=== PATIENT | male | born 1955 | race Caucasian/White ===

== ENCOUNTER → 2016-10-30 | Outpatient (CLI) | payer BC ==
[2016-10-30 08:17] LABS: Basophils % (A) 1 %; CH 31.4; CHCM 34.1; Eosinophils # (A) 0.2 k/uL (0-0.7); Eosinophils % (A) 2 %; HCT 44.9 % (39.0-53.0); HDW 2.41; HGB 15.1 gm/dL (13.0-17.5); Luc # (Auto) 0.17; Luc % (Auto) 2; Lymphocytes # (A) 1.4 k/uL (1.0-4.8); Lymphocytes % (A) 21 %; MCH 31.2 pg (25.0-35.0); MCHC 33.7 g/dL (31.0-37.0); MCV 92.6 fL (80.0-100.0); Mean Platelet Volume 7.7; Monocytes # (A) 0.5 k/uL (0-1.0); Monocytes % (A) 7 %; Neutrophils # (A) 4.8 k/uL (1.3-7.7); Neutrophils % (A) 68 %; RBC 4.85 m/uL (4.30-5.90); RDW 12.6 % (11.5-15.5); WBC (Perox) 7.33
[2016-10-30 11:53] LABS: ALT 58 U/L (21-72); AST 34 U/L (17-59); Alkaline Phosphatase 78 U/L (38-126); Anion Gap 7 mmol/L; Blood Urea Nitrogen 18 mg/dL (9-20); Calcium 9.5 mg/dL (8.4-10.2); Carbon Dioxide 30 mmol/L (22-30); Chloride 102 mmol/L (98-107); Cholesterol 231 mg/dL (<200); Glucose 129 mg/dL (74-99); HDL Cholesterol 48 mg/dL (40-60); Non-African American GFR(MDRD) >60 (>60 ml/min/1.73 sqM); Potassium 4.6 mmol/L (3.5-5.1); Sodium 139 mmol/L (137-145); Total Bilirubin 0.5 mg/dL (0.2-1.3); Total Protein 7.1 g/dL (6.3-8.2); Triglycerides 198 mg/dL (<150)
[2016-10-30 13:12] LABS: Hemoglobin A1C 6.4 % (4.2-6.1)
== END ==
LOC: LABWHC1 07:34
PROVIDERS: ATTEND Internal Medicine Pulmonary Disease
DX: E78.5 Hyperlipidemia, unspecified (principal); I10 Essential (primary) hypertension
CPT/HCPCS: 84439; 80061; 80053; 83036; 84443; 85025; 36415; G0103

== ENCOUNTER 2016-12-08 23:40 | Emergency (ER) | payer BC ==
[2016-12-08 23:46] VITALS: BP 132/88; PULSE 98; RESP 18; TEMP 97.1
--- NOTE | 2016-12-09 00:10 | ED ---
Upper Extremity HPI - General Chief Complaint: Extremity Injury, Upper Stated Complaint: fish hook in finger Time Seen by Provider: 12/08/16 23:57 Source: patient Mode of arrival: ambulatory Limitations: no limitations - History of Present Illness Initial Comments: This patient is a 61-year-old man who presents because he has a fishhook embedded in his left second digit. Patient states he was fishing tonight when became caught his finger. Patient denies significant pain. There is no weakness or numbness of the finger. Patient states he believes his tetanus immunizations up-to-date MD Complaint: Injury to:: left, finger -: hour(s) Other Extremity Injury: Fingers: Left Other Injuries: none Handedness: right Place: outdoors Improves With: none Worsens With: none Associated Symptoms: denies other symptoms - Related Data Allergies Allergy/AdvReac Type Severity Reaction Status Date / Time No Known Allergies Allergy Verified 12/08/16 23:43 Review of Systems ROS Statement: Those systems with pertinent positive or pertinent negative responses have been documented in the HPI. ROS Other: All systems not noted in ROS Statement are negative. Constitutional: Denies: fever Skin: Reports: as per HPI, other (Patient) Past Medical History Past Medical History: Asthma, Hypertension History of Any Multi-Drug Resistant Organisms: None Reported Past Surgical History: Orthopedic Surgery Past Psychological History: Anxiety Smoking Status: Never smoker Past Alcohol Use History: Occasional Past Drug Use History: None Reported General Exam Limitations: no limitations General appearance: alert, in no apparent distress Cardiovascular Exam: Present: other Extremities exam: Present: other (Patient has a fishhook embedded in the left second digit. Range of motion normal. No loss of strength or sensation) Neurological exam: Absent: motor sensory deficit Skin exam: Present: other (As above) Course Vital Signs 12/08/16 23:43 Temperature 97.1 F L Pulse Rate 98 Respiratory 18 Rate Blood Pressure 132/88 O2 Sat by Pulse 98 Oximetry Medical Decision Making - Medical Decision Making I did administer some local lidocaine without epinephrine, and then was able to back the lookout without complication or difficulty. Patient tolerated procedure well Disposition Clinical Impression: Fish hook injury of index finger Disposition: HOME SELF-CARE Condition: Good Instructions: Soft Tissue Foreign Body (ED) Referrals: George Ba MD [Primary Care Provider] - 1-2 days
== END 2016-12-09 00:55 | disposition home or self-care (01) ==
LOC: EC 23:40
DX: S60.451A Superficial foreign body of left index finger, initial encounter (principal); W45.8XXA Other foreign body or object entering through skin, initial encounter
CPT/HCPCS: 99282

== ENCOUNTER → 2024-10-06 | Outpatient (CLI) | payer BC | END | disposition home or self-care (01) | LOC: LABWHC1 10:49 | PROVIDERS: ATTEND Family Medicine | DX: R07.9 Chest pain, unspecified (principal) | CPT/HCPCS: 36415; 85379 ==